=== PATIENT | female | born 2000 | race Caucasian/White ===

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

== ENCOUNTER 2019-06-26 18:53 | Emergency (ER) | payer OTHER ==
[~2019-06-26] VITALS: Ht 167.6 cm; Wt 100.0 kg
[2019-06-26 19:01] VITALS: BP 126/76
--- NOTE | 2019-06-26 19:30 | PHYS DOC ---
Past History Past Medical History: Anxiety, Depression, Ovarian Cyst Past Surgical History: No Surgical History Smoking: Non-smoker Alcohol Use: None Drug Use: None Adult General Chief Complaint Chief Complaint: DENTAL PROBLEM.." I got [place] teeth they were to come out... but they stopped elective surgery... this one on Lt lower is really hurting me ... the last three days.. " HPI HPI Patient is a 18 year old female who presents with above hx and complaints of dental pain- at site of left impacted wisdom tooth. Does have swelling of the surrounding gingiva and adenopathy at ankle of mandible on left. No trismus. Patient does have a scheduled surgical removal of wisdom teeth. No history of travel outside the [place] area recently. Up-to-date with vaccinations. Normally healthy. Patient is driving herself. Review of Systems Review of Systems Constitutional: Denies fever or chills [] Eyes: Denies change in visual acuity, redness, or eye pain [] HENT: Complaints of left lower impacted wisdom tooth 17 Respiratory: Denies cough or shortness of breath [] Cardiovascular: No additional information not addressed in HPI [] GI: Denies abdominal pain, nausea, vomiting, bloody stools or diarrhea [] : Denies dysuria or hematuria [] Musculoskeletal: Denies back pain or joint pain [] Integument: Denies rash or skin lesions [] Neurologic: Denies headache, focal weakness or sensory changes [] Endocrine: Denies polyuria or polydipsia [] All other systems were reviewed and found to be within normal limits, except as documented in this note. Family History Family History Noncontributory to presentation Current Medications Current Medications See nursing for home meds Allergies Allergies Allergies Coded Allergies Type Severity Reaction Last Updated Verified cephalexin Allergy Severe Itching 06/26/19 Yes honey Allergy Unknown 07/20/17 Yes Physical Exam Physical Exam Constitutional: Well developed, well nourished, ports moderate to severe acute distress, non-toxic appearance. [] HENT: Normocephalic, atraumatic, bilateral external ears normal, oropharynx moist, no oral exudates, nose normal. []Impacted [place] tooth in area of 17 with edema and inflammation. Small node at angle of mandible. Eyes: PERRLA, EOMI, conjunctiva normal, no discharge. [] Neck: Normal range of motion, no tenderness, supple, no stridor. [] Cardiovascular:Heart rate regular rhythm, no murmur [] Lungs & Thorax: Bilateral breath sounds clear to auscultation [] Abdomen: Bowel sounds normal, soft, no tenderness, no masses, no pulsatile brando s. [] Skin: Warm, dry, no erythema, no rash. [] Back: No tenderness, no CVA tenderness. [] Extremities: No tenderness, no cyanosis, no clubbing, ROM intact, no edema. [] Neurologic: Alert and oriented X 3, normal motor function, normal sensory function, no focal deficits noted. [] Psychologic: Affect normal, judgement normal, mood normal. [] Current Patient Data Vital Signs Vital Signs Date Time Temp Pulse Resp B/P (MAP) Pulse Ox O2 Delivery O2 Flow Rate FiO2 06/26/19 19:01 98.4 78 16 126/76 (93) 98 Room Air EKG EKG [] Radiology/Procedures Radiology/Procedures [] Course & Med Decision Making Course & Med Decision Making Pertinent Labs and Imaging studies reviewed. (See chart for details) Patient to rinse mouth with hydrogen peroxide 4 times a day after eating or intake of nutrition. Take Tylenol and ibuprofen for pain. Follow up with oral surgeon. For marked pain may take Vicoprofen up to 4 times a day. Patient take clindamycin 300 mg 3 times a day. Return if any concerns. Keep follow-up primary care. Patient to follow with Kassandra HIGGINBOTHAM for up to date information on Covid 19 Impression: 1. Dental Pain - area 17, Impacted [place] Tooth, [] Dragon Disclaimer Dragon Disclaimer This electronic medical record was generated, in whole or in part, using a voice recognition dictation system. Departure Departure: Disposition: HOME/RESIDENCE PRIOR TO ADM Condition: STABLE Referrals: LES PORTER (PCP) Scripts Clindamycin Hcl (CLINDAMYCIN HCL) 300 Mg Capsule 300 MG PO TID for Dental pain, infection for 10 Days, #30 CAP Prov: CARITO WARD MD 06/26/19 Hydrocodone/Ibuprofen (HYDROCODONE-IBUPROFEN 7.5-200 ) 1 Each Tablet 1 TAB PO PRN Q6HRS PRN for PAIN, #30 TAB 0 Refills Prov: CARITO WARD MD 3/29/20 Dragon Disclaimer This chart was dictated in whole or in part using Voice Recognition software in a busy, high-work load, and often noisy Emergency Department environment. It may contain unintended and wholly unrecognized errors or omissions. CARITO WARD MD Jun 26, 2019 19:30
[2019-06-26] MEDS ORDERED: CLINDAMYCIN HCL 150 MG CAPSULE PO ONE (19:45)
[2019-06-26] MEDS ORDERED: CLIN300C8 PO (19:48)
[2019-06-26] MEDS ORDERED: HYDR-1179 PO (19:48)
== END 2019-06-26 20:01 | disposition home or self-care (01) ==
LOC: ER 18:53
DX: K08.89 Other specified disorders of teeth and supporting structures (principal); Z88.1 Allergy status to other antibiotic agents; Z91.018 Allergy to other foods
CPT/HCPCS: 99283

== ENCOUNTER 2019-11-25 21:22 | Emergency (ER) | payer OTHER ==
[~2019-11-25] VITALS: Ht 167.6 cm; Wt 97.1 kg
[~2019-11-25 21:22] MED LIST changes: +CLIN300C8 PO; +HYDR-1179 PO
[2019-11-25 21:43] VITALS: BP 122/85
--- NOTE | 2019-11-25 21:48 | PHYS DOC ---
Past History Past Medical History: Anxiety, Depression, Ovarian Cyst Past Surgical History: No Surgical History Smoking: Non-smoker Alcohol Use: None Drug Use: None General Adult EDM: Chief Complaint: ABDOMINAL PAIN HPI: HPI: Patient is a 19-year-old female who presented to ER today for evaluation of right side abdominal pain started about 3 hours ago. Patient feels nauseous, denies any vomiting, denies fever. Patient denies any diarrhea constipation. Patient denies any pelvic pain, no vaginal bleeding or discharge. Review of Systems: Review of Systems: Constitutional: Denies fever or chills Eyes: Denies change in visual acuity HENT: Denies nasal congestion or sore throat Respiratory: Denies cough or shortness of breath Cardiovascular: Denies chest pain or edema GI: Positive for abdominal pain, nausea. No diarrhea, no constipation : Denies dysuria Musculoskeletal: Denies back pain or joint pain Integument: Denies rash Neurologic: Denies headache, focal weakness or sensory changes Endocrine: Denies polyuria or polydipsia Lymphatic: Denies swollen glands Psychiatric: Denies depression or anxiety Heart Score: Risk Factors: Risk Factors: DM, Current or recent (<one month) smoker, HTN, HLP, family history of CAD, obesity. Risk Scores: Score 0 - 3: 2.5% MACE over next 6 weeks - Discharge Home Score 4 - 6: 20.3% MACE over next 6 weeks - Admit for Clinical Observation Score 7 - 10: 72.7% MACE over next 6 weeks - Early Invasive Strategies Allergies: Allergies: Allergies Coded Allergies Type Severity Reaction Last Updated Verified cephalexin Allergy Severe Itching 06/26/19 Yes honey Allergy Unknown 07/20/17 Yes Physical Exam: PE: Constitutional: Well developed, well nourished, no acute distress, non-toxic appearance. [] HENT: Normocephalic, atraumatic, bilateral external ears normal, oropharynx moist, no oral exudates, nose normal. [] Eyes: PERRLA, EOMI, conjunctiva normal, no discharge. [] Neck: Normal range of motion, no tenderness, supple, no stridor. [] Cardiovascular:Heart rate regular rhythm, no murmur [] Lungs & Thorax: Bilateral breath sounds clear to auscultation [] Abdomen: Bowel sounds normal, soft, there is tenderness to palpation right lower abdominal area, no rebound, no guarding., no masses, no pulsatile masses. [] Skin: Warm, dry, no erythema, no rash. [] Back: No tenderness, no CVA tenderness. [] Extremities: No tenderness, no cyanosis, no clubbing, ROM intact, no edema. [] Neurologic: Alert and oriented X 3, normal motor function, normal sensory functi on, no focal deficits noted. [] Psychologic: Affect normal, judgement normal, mood normal. [] Current Patient Data: Labs: Laboratory Tests Test 11/25/19 22:00 11/25/19 22:05 White Blood Count 8.7 x10^3/uL Red Blood Count 4.33 x10^6/uL Hemoglobin 13.1 g/dL Hematocrit 38.3 % Mean Corpuscular Volume 88 fL Mean Corpuscular Hemoglobin 30 pg Mean Corpuscular Hemoglobin Concent 34 g/dL Red Cell Distribution Width 12.7 % Platelet Count 276 x10^3/uL Neutrophils (%) (Auto) 58 % Lymphocytes (%) (Auto) 34 % Monocytes (%) (Auto) 7 % Eosinophils (%) (Auto) 1 % Basophils (%) (Auto) 1 % Neutrophils # (Auto) 5.0 x10^3uL Lymphocytes # (Auto) 3.0 x10^3/uL Monocytes # (Auto) 0.6 x10^3/uL Eosinophils # (Auto) 0.1 x10^3/uL Basophils # (Auto) 0.0 x10^3/uL Sodium Level 139 mmol/L Potassium Level 3.7 mmol/L Chloride Level 103 mmol/L Carbon Dioxide Level 26 mmol/L Anion Gap 10 Blood Urea Nitrogen 10 mg/dL Creatinine 0.9 mg/dL Estimated GFR (Cockcroft-Gault) 79.8 BUN/Creatinine Ratio 11 Glucose Level 114 mg/dL Calcium Level 9.0 mg/dL Total Bilirubin 0.3 mg/dL Aspartate Amino Transf (AST/SGOT) 13 U/L Alanine Aminotransferase (ALT/SGPT) 21 U/L Alkaline Phosphatase 70 U/L Total Protein 7.6 g/dL Albumin 3.8 g/dL Albumin/Globulin Ratio 1.0 Lipase 147 U/L Serum Test, Qualitative Negative Urine Collection Type Unknown Urine Color Yellow Urine Clarity Clear Urine pH 6.5 Urine Specific [place] 1.015 Urine Protein Neg Urine Glucose (UA) Neg mg/dL Urine Ketones (Stick) Neg mg/dL Urine Blood Neg Urine Nitrite Neg Urine Bilirubin Neg Urine Urobilinogen Dipstick 0.2 mg/dL Urine Leukocyte Esterase Neg Urine RBC 0 /HPF Urine WBC 1-4 /HPF Urine Squamous Epithelial Cells Mod /LPF Urine Bacteria Few /HPF Current Medications Medications (Trade) Dose Ordered Sig/Dipti Route PRN Reason Start Time Stop Time Status Last Admin Dose Admin Ondansetron HCl (Zofran) 4 mg 1X ONCE IVP 11/25/19 22:00 11/25/19 22:01 DC 11/25/19 22:01 Ketorolac Tromethamine (Toradol 30mg Vial) 30 mg 1X ONCE IVP 11/25/19 23:30 11/25/19 23:31 DC 11/25/19 23:08 Iohexol (Omnipaque 300 Mg/ml) 75 ml 1X ONCE IV 11/25/19 23:30 11/25/19 23:31 DC 11/25/19 23:44 Iohexol (Omnipaque 300 Mg/ml) 75 ml STK-MED ONCE .ROUTE 11/25/19 23:08 11/25/19 23:08 DC Info (Do NOT chart on this entry -- for MONITORING) 1 each PRN DAILY PRN MC SEE COMMENTS 11/25/19 23:15 11/27/19 23:14 Vital Signs: Vital Signs Date Time Temp Pulse Resp B/P (MAP) Pulse Ox O2 Delivery O2 Flow Rate FiO2 11/25/19 21:43 97.5 98 18 122/85 (97) 98 Room Air EKG: EKG: [] Radiology/Procedures: Radiology/Procedures: [][address] [address] IMAGING REPORT Signed PATIENT: CLAUDIA SALMON IACCOUNT: [id number] : 2000 LOCATION: ER AGE: 19 SEX: F EXAM STATUS: REG ER ORD. PHYSICIAN: HERNESTO SIDHU DO REASON: OMNI 300,75ML IV.RLQ ABD PAIN.HX OVARIAN CYSTS PROCEDURE: CT ABD PELV W/ IV CONTRST ONLY Study: CT abdomen/pelvis with intravenous contrast Indication: Right lower quadrant abdominal pain. Comparison: No prior CT. Technique: Helical CT imaging performed of the abdomen and pelvis after the intravenous administration of 75 cc Omnipaque 300 unremarkable. contrast. Sagittal and coronal reformats were obtained. One or more of the following individualized dose reduction techniques were utilized for this examination: 1. Automated exposure control 2. Adjustment of the mA and/or kV according to patient size 3. Use of iterative reconstruction technique. Findings: Chest: Unremarkable. Liver: Subcentimeter low-attenuation focus within the right hepatic lobe, image 19 series 2, not fully characterized but statistically most likely to represent a benign process. No dedicated follow-up is needed unless otherwise clinically indicated. Gallbladder/Biliary Tree: Unremarkable. Pancreas: Unremarkable. Spleen: Within normal limits for size. Adrenal Glands: Unremarkable. Kidneys/Ureters/Bladder: No renal parenchymal abnormality. No collecting system dilatation. Mostly collapsed urinary bladder. Reproductive Organs: The uterus and ovaries are within normal limits for patient age. There are several follicles and/or very small cysts bilaterally. Colon: Unremarkable. Appendix: Normal as seen on image 61 series 2. Small Bowel: Unremarkable. Stomach: Unremarkable. Vasculature: Unremarkable. Lymph Nodes: Unremarkable. Peritoneum and Body Wall: Trace amount of free fluid within the pelvis which on image 74 series 2 measures simple density and most likely physiologic. Bones: No acute abnormality. Miscellaneous: None. Impression: No acute process is seen throughout the abdomen or pelvis to account for the patient's symptoms. The appendix is normal. The CT appearance of both ovaries as well as the uterus is within normal limits for patient age. Electronically signed by: JESSICA LIZARRAGA MD (11/26/2019 12:10 AM) [id number] DICTATED AND SIGNED BY: JESSICA LIZARRAGA MD DATE: 11/26/19 0010 CC: LES PORTER; HERNESTO SIDHU DO ~ Course & Med Decision Making: Course & Med Decision Making Pertinent Labs and Imaging studies reviewed. (See chart for details) Patient is a 19-year-old female who was evaluated in ER due to right lower abdominal pain, lab work and CT scan of her abdomen pelvis did not show any acute problem. Patient will be discharged home. Dragon Disclaimer: Dragon Disclaimer: This electronic medical record was generated, in whole or in part, using a voice recognition dictation system. Departure Departure: Impression: Primary Impression: Abdominal pain Disposition: HOME/RESIDENCE PRIOR TO ADM Condition: STABLE Referrals: LES PORTER (PCP) PLEASE FOLLOW UP WITH YOUR FAMILY DOCTOR NEEDED Patient Instructions: Abdominal Pain Additional Instructions: Thank you for visiting our Emergency Department. We appreciate you trusting us with your care. If any additional problems come up don't hesitate to return to visit us. Please follow up with your primary care provider so they can plan additional care if needed and know about the problem that you had. If symptoms worsen come back to the Emergency Department. Any concerning symptoms that start such as chest pain, shortness of air, weakness or numbness on one side of the body, running high fevers or any other concerning symptoms return to the ER. Scripts Naproxen Sodium (ANAPROX DS) 550 Mg Tablet 1 TAB PO BID PRN for PAIN for 15 Days, #30 TAB 0 Refills Prov: HERNESTO SIDHU DO 11/26/19 Justification of Admission: Justification of Admission: Justification of Admission Dx: N/A HERNESTO SIDHU DO Nov 25, 2019 21:48
[2019-11-25] MEDS ORDERED: ONDANSETRON PF 4 MG/2 ML VIAL. IVP ONE (22:00)
[2019-11-25 22:29] LABS: BASO % 1 % (0-3); CREATININE 0.9 mg/dL (0.6-1.0); EOS # 0.1 x10^3/uL (0.0-0.7); EOS % 1 % (0-3); GFR 79.8; HEMATOCRIT 38.3 % (36.0-47.0); HEMOGLOBIN 13.1 g/dL (12.0-15.5); LYMPH % 34 % (24-48); MEAN CORPUSCULAR HEMOGLOBIN 30 pg (25-35); MEAN CORPUSCULAR HGB CONC 34 g/dL (31-37); MEAN CORPUSCULAR VOLUME 88 fL (79-100); MONO # 0.6 x10^3/uL (0.0-1.1); MONO % 7 % (0-9); NEUT % 58 % (31-73); PLATELET COUNT 276 x10^3/uL (140-400); POTASSIUM 3.7 mmol/L (3.5-5.1); PREG TEST PT QUAL NEGATIVE (NEG); RED BLOOD COUNT 4.33 x10^6/uL (3.50-5.40); RED CELL DISTRIBUTION WIDTH 12.7 % (11.5-14.5); WHITE BLOOD COUNT 8.7 x10^3/uL (4.0-11.0)
[2019-11-25 22:35] LABS: BACTERIA,URINE FEW /HPF (0-FEW); BILIRUBIN,URINE NEG (NEG); CLARITY,URINE CLEAR; COLOR,URINE YELLOW; GLUCOSE,URINE NEG (NEG); NITRITE,URINE NEG (NEG); RBC,URINE 0 /HPF (0-2); SQUAMOUS EPITHELIAL CELL,UR MOD /LPF; UROBILINOGEN,URINE 0.2 mg/dL (0.2 mg/dL)
[2019-11-25 22:37] LABS: ALBUMIN 3.8 g/dL (3.4-5.0); TOTAL BILIRUBIN 0.3 mg/dL (0.2-1.0); TOTAL PROTEIN 7.6 g/dL (6.4-8.2)
[2019-11-25] MEDS ORDERED: IOHEXOL 300 MG/ML 75 ML VIAL. ONE (23:08)
[2019-11-25] MEDS ORDERED: CONTRAST GIVEN. MC PRN (23:15)
[2019-11-25] MEDS ORDERED: IOHEXOL 300 MG/ML 75 ML VIAL. IV ONE (23:30)
[2019-11-25] MEDS ORDERED: KETOROLAC 30 MG/ML VIAL. IVP ONE (23:30)
--- NOTE | 2019-11-26 00:12 | RAD ---
Study: CT abdomen/pelvis with intravenous contrast Indication: Right lower quadrant abdominal pain. Comparison: No prior CT. Technique: Helical CT imaging performed of the abdomen and pelvis after the intravenous administration of 75 cc Omnipaque 300 unremarkable. contrast. Sagittal and coronal reformats were obtained. One or more of the following individualized dose reduction techniques were utilized for this examination: 1. Automated exposure control 2. Adjustment of the mA and/or kV according to patient size 3. Use of iterative reconstruction technique. Findings: Chest: Unremarkable. Liver: Subcentimeter low-attenuation focus within the right hepatic lobe, image 19 series 2, not fully characterized but statistically most likely to represent a benign process. No dedicated follow-up is needed unless otherwise clinically indicated. Gallbladder/Biliary Tree: Unremarkable. Pancreas: Unremarkable. Spleen: Within normal limits for size. Adrenal Glands: Unremarkable. Kidneys/Ureters/Bladder: No renal parenchymal abnormality. No collecting system dilatation. Mostly collapsed urinary bladder. Reproductive Organs: The uterus and ovaries are within normal limits for patient age. There are several follicles and/or very small cysts bilaterally. Colon: Unremarkable. Appendix: Normal as seen on image 61 series 2. Small Bowel: Unremarkable. Stomach: Unremarkable. Vasculature: Unremarkable. Lymph Nodes: Unremarkable. Peritoneum and Body Wall: Trace amount of free fluid within the pelvis which on image 74 series 2 measures simple density and most likely physiologic. Bones: No acute abnormality. Miscellaneous: None. Impression: No acute process is seen throughout the abdomen or pelvis to account for the patient's symptoms. The appendix is normal. The CT appearance of both ovaries as well as the uterus is within normal limits for patient age. Electronically signed by: JESSICA LIZARRAGA MD (11/26/2019 12:10 AM) [id number]
[2019-11-26] MEDS ORDERED: NAPR-682 PO (00:37)
== END 2019-11-26 01:00 | disposition home or self-care (01) ==
LOC: ER 21:22
DX: R10.31 Right lower quadrant pain (principal); R11.0 Nausea; Z88.1 Allergy status to other antibiotic agents; Z91.018 Allergy to other foods
CPT/HCPCS: 36415; 74177; 80053; 81001; 83690; 84703; 85025; 96374; 96375; 99285; J1885; J2405; Q9967

== ENCOUNTER 2020-11-17 14:54 | Emergency (ER) | payer OTHER ==
[~2020-11-17] VITALS: Ht 167.6 cm; Wt 97.1 kg
[~2020-11-17 14:54] MED LIST changes: -CLIN300C8 PO; +CLIN300C9 PO; +NAPR-682 PO
[2020-11-17 15:08] VITALS: BP 122/83
--- NOTE | 2020-11-17 15:25 | PHYS DOC ---
Past History Past Medical History: Anxiety, Depression, Ovarian Cyst (TIMA BURR APRN) Past Surgical History: No Surgical History (TIMA BURR APRN) Smoking: Non-smoker Alcohol Use: None Drug Use: None (TIMA BURR APRN) General Adult EDM: Chief Complaint: VAGINAL BLEEDING HPI: HPI: Patient is a 20-year-old female being seen in the ER for bright red vaginal bleeding x3 days. She has also reporting mild lower abdominal cramping and nausea. Patient denies vomiting, fevers. Patient reports her last menstrual p eriod was 10/25. Patient denies saturating pads but reports that the vaginal bleeding is only when she wipes. Patient had a negative test at home. Patient is G1, P1. Patient does not follow-up with a learning support services director. Patient's medical history consists of ovarian cyst. (TIMA BURR APRN) Review of Systems: Review of Systems: 14 body systems of the review of systems have been reviewed. See HPI for pertinent positive and negative responses, otherwise all other systems are negative, nonpertinent or noncontributory (TIMA BURR APRN) Allergies: Allergies: Allergies Coded Allergies Type Severity Reaction Last Updated Verified cephalexin Allergy Severe Itching 06/26/19 Yes honey Allergy Unknown 07/20/17 Yes (TIMA BURR APRN) Physical Exam: PE: Constitutional: Well developed, well nourished, no acute distress, non-toxic appearance. [] HENT: Normocephalic, atraumatic, bilateral external ears normal, oropharynx moist, no oral exudates, nose normal. [] Eyes: PERRL, EOMI, conjunctiva normal, no discharge. [] Neck: Normal range of motion, no stridor Cardiovascular:Heart rate regular rhythm, no murmur [] Lungs & Thorax: Bilateral breath sounds clear to auscultation [] Abdomen: Bowel sounds normal, soft, no tenderness, no masses, no pulsatile masses. [] Skin: Warm, dry, no erythema, no rash. [] Back: Normal range of motion Extremities: No tenderness, no cyanosis, no clubbing, ROM intact, no edema. [] Neurologic: Alert and oriented X 3, normal motor function, normal sensory fu nction, no focal deficits noted. [] Psychologic: Affect normal, judgement normal, mood normal. [] (TIMA BURR SCIENTIFIC AIDE) Current Patient Data: Labs: Laboratory Tests Test 11/17/20 15:22 11/17/20 15:34 11/17/20 15:36 11/17/20 16:25 Urine Collection Type Unknown Urine Color [place] Urine Clarity Turbid Urine pH Urine Specific [place] Urine Protein Urine Glucose (UA) mg/dL Urine Ketones (Stick) mg/dL Urine Blood Urine Nitrite Urine Bilirubin Urine Urobilinogen Dipstick mg/dL Urine Leukocyte Esterase Urine RBC Tntc /HPF Urine WBC 0 /HPF Urine Squamous Epithelial Cells Few /LPF Urine Bacteria 0 /HPF Bedside Urine HCG, Qualitative hcg negative Sodium Level 140 mmol/L Potassium Level 4.4 mmol/L Chloride Level 103 mmol/L Carbon Dioxide Level 27 mmol/L Anion Gap 10 Blood Urea Nitrogen 10 mg/dL Creatinine 0.6 mg/dL Estimated GFR (Cockcroft-Gault) 126.2 BUN/Creatinine Ratio 17 Glucose Level 106 mg/dL Calcium Level 9.2 mg/dL Total Bilirubin 0.4 mg/dL Aspartate Amino Transf (AST/SGOT) 37 U/L Alanine Aminotransferase (ALT/SGPT) 35 U/L Alkaline Phosphatase 84 U/L Total Protein 7.9 g/dL Albumin 3.9 g/dL Albumin/Globulin Ratio 1.0 White Blood Count 8.1 x10^3/uL Red Blood Count 4.31 x10^6/uL Hemoglobin 13.1 g/dL Hematocrit 38.4 % Mean Corpuscular Volume 89 fL Mean Corpuscular Hemoglobin 30 pg Mean Corpuscular Hemoglobin Concent 34 g/dL Red Cell Distribution Width 12.5 % Platelet Count 266 x10^3/uL Neutrophils (%) (Auto) 65 % Lymphocytes (%) (Auto) 28 % Monocytes (%) (Auto) 6 % Eosinophils (%) (Auto) 1 % Basophils (%) (Auto) 0 % Neutrophils # (Auto) 5.2 x10^3uL Lymphocytes # (Auto) 2.3 x10^3/uL Monocytes # (Auto) 0.5 x10^3/uL Eosinophils # (Auto) 0.1 x10^3/uL Basophils # (Auto) 0.0 x10^3/uL Vital Signs: Vital Signs Date Time Temp Pulse Resp B/P (MAP) Pulse Ox O2 Delivery O2 Flow Rate FiO2 11/17/20 15:08 84 18 122/83 98 (TIMA BURR APRN) EKG: EKG: [] (TIMA BURR APRN) Radiology/Procedures: Radiology/Procedures: PROCEDURE: PELVIS COMPLETE EXAM: ULTRASOUND PELVIS INDICATION: Reason: abnormal vaginal bleeding COMPARISON: None available. TECHNIQUE: Transabdominal and transvaginal sonography was performed. FINDINGS: Transabdominal sonography: Uterus is poorly visualized. Neither ovary is visualized due to overlying bowel gas. Therefore, transvaginal sonography will be performed. No adnexal mass or free fluid is seen. Transvaginal sonography: Uterus is anteverted in position. The longitudinal and AP and transverse dimensions of the uterus are 8.6 cm and 3.7 cm and 5.5 cm respectively. No uterine mass is seen. The endometrial canal measures 5 mm in thickness which is normal. Tiny nabothian cyst of the cervix is seen. No free fluid is seen within the cul-de-sac. The right ovary measures 1.9 cm and 1.9 cm and 3.0 cm in size and is normal. Color Doppler flow is seen within the right ovary. The left ovary measures 2.6 cm x 2.9 cm x 5.4 cm in size and contains a prominent cyst measuring 4.4 cm. Thin septations are seen within the cyst. Color Doppler flow is seen within the ovarian parenchyma around the cyst. No free fluid is evident. IMPRESSION: 4.4 cm mildly complex left ovarian cyst. No free fluid. Uterus is normal. Electronically signed by: Carlos Manuel Gonzalez MD (11/17/2020 5:48 PM) [id number] DICTATED AND SIGNED BY: CARLOS MANUEL GONZALEZ MD DATE: 11/17/20 1744 CC: TIMA BURR APRN; WM HAYWARD DO ~MTH0 0 [] (TIMA BURR APRN) Heart Score: C/O Chest Pain: No Risk Factors: Risk Factors: DM, Current or recent (<one month) smoker, HTN, HLP, family history of CAD, obesity. Risk Scores: Score 0 - 3: 2.5% MACE over next 6 weeks - Discharge Home Score 4 - 6: 20.3% MACE over next 6 weeks - Admit for Clinical Observation Score 7 - 10: 72.7% MACE over next 6 weeks - Early Invasive Strategies (TIMA BURR APRN) Course & Med Decision Making: Course & Med Decision Making Pertinent Labs and Imaging studies reviewed. (See chart for details) Patient is a 20-year-old female being seen in the ER for vaginal bleeding x3 days. Work-up in the ER consisted of urinalysis, test, and blood work. Work-up in the ER was unremarkable. Patient had a negative test. Ultrasound showed a cyst on her left ovary. Patient given gynecology follow-up information. Patient vies to take Tylenol/ibuprofen for pain. I discussed with patient all findings and diagnostic testing as well as the need to follow-up with PCP for further evaluation and treatment or return to the ER if any new or worsening symptoms. Strict return precautions were also discussed at length. Patient voiced understanding and agreement with the plan. Patient is hemodynamically stable at the time of disposition. (TIMA BURR APRN) Dragon Disclaimer: Dragon Disclaimer: This electronic medical record was generated, in whole or in part, using a voice recognition dictation system. (TIMA BURR APRN) Attending Co-Sign The patient was seen and interviewed as well as examined at the bedside. The chart was reviewed. The case was discussed. Agree with the plan of care. (DAWOOD STARK DO) Departure Departure: Impression: Primary Impression: Abnormal vaginal bleeding Additional Impression: Ovarian cyst Qualified Codes: N83.202 - Unspecified ovarian cyst, left side Disposition: HOME / SELF CARE / HOMELESS Condition: GOOD Referrals: WM HAYWARD DO (PCP) Patient Instructions: Ovarian Cyst Additional Instructions: You were seen in the ER for abnormal vaginal bleeding. You had a negative pregn dakotah test. Your work-up in the ER was unremarkable. Your ultrasound showed a cyst on your left ovary. You should take Tylenol/ibuprofen for pain. You will need to follow-up with a learning support services director. You can follow-up with the learning support services director at [facility], Dr. Berrios. Please call [phone] tomorrow to schedule a follow-up appointment. Please return to the ER if you have worsening of your vaginal bleeding where you are saturating more than 1 pad an hour, intractable nausea or vomiting, fevers refractory to treatment, severe abdominal pain or back pain, lightheadedness. EMERGENCY DEPARTMENT GENERAL DISCHARGE INSTRUCTIONS Thank you for coming to [facility] (ED) today and trusting us with you care. We trust that you had a positivie experience in our Emergency Department. If you wish to speak to the department management, you may call the director at [phone]. YOUR FOLLOW UP INSTRUCTIONS ARE FOLLOWS: 1. Do you have a private Doctor? If you do not have a private doctor, please ask for a resource list of physicians or clinics that may be able to assist you with follow up care. 2. The Emergency Physician has interpreted your x-rays. The X-Ray specialist will also review them. If there is a change in the findings, you will be notified in 48 hours when at all possible. 3. A lab test or culture has been done, your results will be reviewed and you will be notified if you need a change in treatment. ADDITIONAL INSTRUCTIONS AND INFORMATION: 1. Your care today has been supervised by a physician who is specially trained in emergency care. Many problems require more than one evaluation for a complete diagnosis and treatment. We recommend that you schedule your follow up appointment as recommended to ensure complete treatment of you illness or injury. If you are unable to obtain follow up care and continue to have a problem, or if your condition worsens, we recommend that you return to the ED. 2. We are not able to safely determine your condition over the phone nor are we able to give sound medical advice over the phone. For these safety reasons, if you call for medical advice we will ask you to come to the ED for further evaluation. 3. If you have any questions regarding these discharge instructions please call the ED at [phone]. SAFETY INFORMATION: In the interest of safety, wellness, and injury prevention; we encourage you to wear your sealbelt, if you smoke; quite smoking, and we encourage family to use a protective helmet for bicycling and other sporting events that present an increased risk for head injury. IF YOUR SYMPTOMS WORSEN OR NEW SYMPTOMS DEVELOP, OR YOU HAVE CONCERNS ABOUT YOUR CONDITION; OR IF YOUR CONDITION WORSENS WHILE YOU ARE WAITING FOR YOUR FOLLOW UP APPOINTMENT; EITHER CONTACT YOUR PRIMARY CARE DOCTOR, THE PHYSICIAN WHOSE NAME AND NUMBER YOU WERE GIVEN, OR RETURN TO THE ED IMMEDIATELY. TIMA BURR APRN Nov 17, 2020 15:25 DAWOOD STARK DO Nov 19, 2020 09:58
[2020-11-17 15:47] LABS: CLARITY,URINE TURBID; COLOR,URINE ORANGE
[2020-11-17 15:48] LABS: BACTERIA,URINE 0 /HPF (0-FEW); RBC,URINE TNTC /HPF (0-2); SQUAMOUS EPITHELIAL CELL,UR FEW /LPF; WBC,URINE 0 /HPF (0-4)
[2020-11-17 16:09] LABS: CALCIUM 9.2 mg/dL (8.5-10.1); CREATININE 0.6 mg/dL (0.6-1.0); GFR 126.2; POTASSIUM 4.4 mmol/L (3.5-5.1)
[2020-11-17 16:15] LABS: ALBUMIN 3.9 g/dL (3.4-5.0); TOTAL BILIRUBIN 0.4 mg/dL (0.2-1.0); TOTAL PROTEIN 7.9 g/dL (6.4-8.2)
[2020-11-17 16:48] LABS: BASO % 0 % (0-3); EOS # 0.1 x10^3/uL (0.0-0.7); EOS % 1 % (0-3); HEMATOCRIT 38.4 % (36.0-47.0); HEMOGLOBIN 13.1 g/dL (12.0-15.5); LYMPH # 2.3 x10^3/uL (1.0-4.8); LYMPH % 28 % (24-48); MEAN CORPUSCULAR HEMOGLOBIN 30 pg (25-35); MEAN CORPUSCULAR HGB CONC 34 g/dL (31-37); MEAN CORPUSCULAR VOLUME 89 fL (79-100); MONO # 0.5 x10^3/uL (0.0-1.1); MONO % 6 % (0-9); NEUT # 5.2 x10^3uL (1.8-7.7); NEUT % 65 % (31-73); PLATELET COUNT 266 x10^3/uL (140-400); RED BLOOD COUNT 4.31 x10^6/uL (3.50-5.40); RED CELL DISTRIBUTION WIDTH 12.5 % (11.5-14.5); WHITE BLOOD COUNT 8.1 x10^3/uL (4.0-11.0)
--- NOTE | 2020-11-17 17:51 | RAD ---
EXAM: ULTRASOUND PELVIS INDICATION: Reason: abnormal vaginal bleeding COMPARISON: None available. TECHNIQUE: Transabdominal and transvaginal sonography was performed. FINDINGS: Transabdominal sonography: Uterus is poorly visualized. Neither ovary is visualized due to overlying bowel gas. Therefore, transvaginal sonography will be performed. No adnexal mass or free fluid is see n. Transvaginal sonography: Uterus is anteverted in position. The longitudinal and AP and transverse dim ensions of the uterus are 8.6 cm and 3.7 cm and 5.5 cm respectively. No uterine mass is seen. The end ometrial canal measures 5 mm in thickness which is normal. Tiny nabothian cyst of the cervix is seen. No free fluid is seen within the cul-de-sac. The right ovary measures 1.9 cm and 1.9 cm and 3.0 cm i n size and is normal. Color Doppler flow is seen within the right ovary. The left ovary measures 2.6 cm x 2.9 cm x 5.4 cm in size and contains a prominent cyst measuring 4.4 cm. Thin septations are seen within the cyst. Color Doppler flow is seen within the ovarian parenchyma around the cyst. No free f luid is evident. IMPRESSION: 4.4 cm mildly complex left ovarian cyst. No free fluid. Uterus is normal. Electronically signed by: Paco Gonzalez MD (11/17/2020 5:48 PM) [id number]
== END 2020-11-17 18:31 | disposition home or self-care (01) ==
LOC: ER 14:54
DX: N83.202 Unspecified ovarian cyst, left side (principal); N93.8 Other specified abnormal uterine and vaginal bleeding; Z88.1 Allergy status to other antibiotic agents; Z91.018 Allergy to other foods
CPT/HCPCS: 36415; 76856; 80053; 81001; 81025; 85025; 99284

== ENCOUNTER 2021-04-18 23:14 | Emergency (ER) | payer OTHER ==
[~2021-04-18] VITALS: Ht 167.6 cm; Wt 97.1 kg
[~2021-04-18 23:14] MED LIST changes: +CLIN-95 PO; -CLIN300C9 PO
[2021-04-18] MEDS ORDERED: ACETAMINOPHEN 500 MG TABLET PO ONE (23:30)
[2021-04-18] MEDS ORDERED: diphenhydrAMINE HCL 25 MG CAPSULE PO ONE (23:30)
--- NOTE | 2021-04-18 23:32 | PHYS DOC ---
Past History Past Medical History: Anxiety, Depression, Ovarian Cyst Past Surgical History: No Surgical History Smoking: Non-smoker Alcohol Use: None Drug Use: None Adult General HPI HPI Patient is a 20-year-old female presents 17 weeks with some mild lower abdominal cramping, 4 out of 10, dull and achy in nature with no radiation. D enies any recent travel, illnesses, fevers, chest pain, shortness of breath, other abdominal pain, dysuria, hematuria, blood in the stool or diarrhea. Denies any vaginal bleeding, cramping, pain, discharge or history of STIs. States she is eating and drinking normally for her. States she is making urine and stool normally for her denies taking any medications. States that her 2-year-old toddler accidentally kicked her in the side of the stomach about 5 hours ago while they were playing. Review of Systems Review of Systems Review of systems otherwise unremarkable except noted in HPI Current Medications Current Medications Current Medications Medications (Trade) Dose Ordered Sig/Dipti Start Time Stop Time Status Last Admin Dose Admin Acetaminophen (Tylenol) 1,000 mg 1X ONCE 04/18/21 23:30 04/18/21 23:31 Diphenhydramine HCl (Benadryl) 50 mg 1X ONCE 04/18/21 23:30 04/18/21 23:31 Allergies Allergies Allergies Coded Allergies Type Severity Reaction Last Updated Verified cephalexin Allergy Severe Itching 06/26/19 Yes honey Allergy Unknown 07/20/17 Yes Physical Exam Physical Exam Constitutional: Well developed, well nourished, no acute distress, non-toxic appearance. [] HENT: Normocephalic, atraumatic, bilateral external ears normal, oropharynx moist, no oral exudates, nose normal. [] Eyes: conjunctiva normal, no discharge. [] Neck: Normal range of motion, no tenderness, supple, no stridor. [] Cardiovascular:Heart rate regular rhythm, no murmur [] Lungs & Thorax: Bilateral breath sounds clear to auscultation [] Abdomen: soft, no tenderness, no masses, no pulsatile masses. [] Skin: Warm, dry, no erythema, no rash. [] Back: No tenderness, no CVA tenderness. [] Extremities: No tenderness, no cyanosis, no clubbing, ROM intact, no edema. [] Neurologic: Alert and oriented X 3, normal motor function, normal sensory f unction, able to sit, stand and walk without issue, no focal deficits noted. [] Psychologic: Affect normal, judgement normal, mood normal. [] EKG EKG [] Radiology/Procedures Radiology/Procedures [] Heart Score C/O Chest Pain: No Risk Factors: Risk Factors: DM, Current or recent (<one month) smoker, HTN, HLP, family history of CAD, obesity. Risk Scores: Risk Factors: DM, Current or recent (<one month) smoker, HTN, HLP, family history of CAD, obesity. Course & Med Decision Making Course & Med Decision Making Patient is a otherwise healthy 20-year-old female at 17 weeks who presents with mild cramping and essentially no other symptoms Vital signs notable for borderline tachycardia. Physical exam noted above heart rate on Doppler 190. POC ultrasound showed intrauterine with no obvious intrauterin/gestational sac bleeding, fast negative, heart rate 159. POC ultrasound showing intrauterine with a heart rate of 135, activity, no intra uterine bleeding and fast negative. Patient with no vaginal pain, bleeding or discharge. Otherwise asymptomatic. Urinalysis not concerning. Gave mom reassurance. Discussed findings with mom. Advised to follow-up in the morning with [employer]PER[employer]. Gave return precautions to the ED. Mom grateful, verbalized understanding and agreed with plan of discharge. [] Dragon Disclaimer Dragon Disclaimer This electronic medical record was generated, in whole or in part, using a voice recognition dictation system. Departure Departure: Impression: Primary Impression: Additional Impression: Cramp, abdominal Disposition: 01 HOME / SELF CARE / HOMELESS Condition: GOOD Referrals: SUMI HAYWARD DO, [facility] (PCP) Patient Instructions: ABCs of Additional Instructions: Thank you for coming into the emergency department tonight and allowing us to take care of you. Please read the attached information carefully to go over things we discussed. You can use Tylenol and Benadryl at home as needed as well as ice. Please follow-up in the morning with your primary care physician and/or your [employer] SUPERVISOR to update on your ED visit and set up a follow-up as soon as you can. Please come back with new or concerning symptoms as we discussed. Problem Qualifiers DIVYA LI MD Apr 18, 2021 23:32
[2021-04-18 23:57] LABS: BACTERIA,URINE 0 /HPF (0-FEW); BILIRUBIN,URINE NEG (NEG); CLARITY,URINE CLEAR; COLOR,URINE YELLOW; GLUCOSE,URINE NEG (NEG); NITRITE,URINE NEG (NEG); RBC,URINE 0 /HPF (0-2); SQUAMOUS EPITHELIAL CELL,UR MOD /LPF; UROBILINOGEN,URINE 0.2 mg/dL (0.2 mg/dL); WBC,URINE OCC /HPF (0-4)
[2021-04-19 00:55] VITALS: BP 130/74
== END 2021-04-19 00:55 | disposition home or self-care (01) ==
LOC: ER 23:14
DX: O26.893 Other specified pregnancy related conditions, third trimester (principal); R10.30 Lower abdominal pain, unspecified; Z3A.17 17 weeks gestation of pregnancy; Z88.1 Allergy status to other antibiotic agents; Z88.8 Allergy status to other drugs, medicaments and biological substances
CPT/HCPCS: 81001; 99284